=== PATIENT | male | born 1945 | race Caucasian/White ===

== ENCOUNTER → 2019-10-17 | Outpatient (CLI) | payer OTHER | LOC: SJCVCIMAG 08:11 | DX: I25.10 Atherosclerotic heart disease of native coronary artery without angina pectoris (principal); I10 Essential (primary) hypertension; I65.23 Occlusion and stenosis of bilateral carotid arteries; M10.9 Gout, unspecified; Z79.82 Long term (current) use of aspirin ==

== ENCOUNTER 2021-05-28 12:34 | Inpatient (IN) | payer OTHER ==
[~2021-05-28] VITALS: Ht 172.7 cm; Wt 92.1 kg
[2021-05-28 12:35] VITALS: BP 128/92
--- NOTE | 2021-05-28 12:57 | EKG ---
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1945 Requested By: Junaid Gong Order Number: [id number] MD: Dallas Dubois Measurements Intervals [place] Rate: 141 P: [place]: QRS: 75 QRSD: 88 T: 260 QT: 318 QTc: 487 Interpretive Statements Atrial fibrillation Nonspecific T abnormalities, lateral leads Compared to ECG 05/20/2007 04:55:33 T-wave abnormality now present Sinus rhythm no longer present Sinus arrhythmia no longer present Atrial abnormality no longer present Electronically Signed On 05-28-2021 12:56:44 CDT by Dallas Dubois [email or web address] <ELECTRONICALLY SIGNED> By: Dallas Dubois MD, [facility] 05/28/21 1256 1241 1241 Dallas Dubois MD, FACC /EPI
[2021-05-28 13:06] LABS: ABSOLUTE NEUTROPHILS 4.7 thou/uL (1.4-8.2); BASOPHILS 0.7 % (0.0-2.0); EOSINOPHILS 2.1 % (0.0-3.0); HEMATOCRIT 41.9 % (42.0-52.0); HEMOGLOBIN 13.9 gm/dL (14.0-18.0); LYMPHOCYTES 17.3 % (24.0-44.0); MCH 30.9 pg (26.0-34.0); MCHC 33.2 g/dL (28.0-37.0); MONOCYTES 13.9 % (1.0-8.0); PLATELET COUNT 171 thou/uL (150-400); RDW 14.1 % (10.5-14.5); WBC 7.1 thou/uL (4.0-11.0)
[2021-05-28 13:19] LABS: CALCIUM 9.3 mg/dL (8.5-10.1); CREATININE 1.5 mg/dL (0.7-1.3); POTASSIUM 4.7 mmol/L (3.5-5.1)
--- NOTE | 2021-05-28 23:00 | NUR ---
PT ADMIT FOR AFIB. PT IS ALERT AND OREINTED X4. LUNGS ARE CLEAR ON ROOM AIR. PT PLEASANT. NPO FOR CARDOVERSION IN AM. ADMIT TO TO [address] [place] [address]. PLAN OF CARE DISCUSSED WITH PT. PT REPORTS HE NOTICED HIS HEART RATE JUMPING UP WITH HIS APPLE WATCH SO HE CAME TO HOSPITAL. JUST GOT BACK FROM [facility] AND HIKING HE REPORTS. ON CARDIZEM DRIP NOW. CALL LIGHT WITHIN REACH IF NEEDS ASSISTANCE PER NURSING.
[2021-05-28] MEDS ORDERED: ALLOPURINOL 10100 M3 PO (23:03)
[2021-05-28] MEDS ORDERED: ROSUVASTATIN CA40 MG PO (23:04)
[2021-05-28] MEDS ORDERED: ACCUPRIL40 MG PO (23:04)
[2021-05-28] MEDS ORDERED: TRIAMTERENE/HCT1 CA1 PO (23:05)
[2021-05-28] MEDS ORDERED: PRILOSEC OTC20 MG PO (23:06)
[2021-05-28] MEDS ORDERED: MULTIVITAMIN1 EACH PO (23:07)
[2021-05-28] MEDS ORDERED: BYSTOLIC10 MG PO (23:07)
[2021-05-28] MEDS ORDERED: ASPIR-TRIN325 MG PO (23:08)
[2021-05-28] MEDS ORDERED: MAGNESIUM MALATE1 GM PO (23:09)
[2021-05-28] MEDS ORDERED: TURMERIC500 M2 PO (23:10)
[2021-05-28] MEDS ORDERED: VITAMIN D3 PO (23:12)
[2021-05-28] MEDS ORDERED: CO Q-1010 MG PO (23:13)
[2021-05-28] MEDS ORDERED: CINNAMON500 MG PO (23:13)
[2021-05-28] MEDS ORDERED: MILK THISTLE175 M1 PO (23:14)
[2021-05-28] MEDS ORDERED: PROBIOTIC1 EAC7 PO (23:14)
[2021-05-28 23:29] VITALS: BP 122/72
[2021-05-29 01:35] VITALS: BP 129/97
--- NOTE | 2021-05-29 02:19 | NUR ---
ADMISSION PROCESS STARTED IN ED, BELONGINGS LOGGED, MEDICATIONS RECONCILED, MEDICATIONS TO BE TAKEN HOME BY PT TOMORROW, CONSENTS TO BE OBTAINED WHEN PT TRANSFERRED TO UNIT. PT AOX4. PT DENIES PAIN. PT REPORTS SOB WITH EXERTION WHILE ON ROOM AIR, DESATURATIONS NOTED DOWN TO 88%. 2L O2 APPLIED VIA NC, O2 SATURATION NOTED TO IMPROVE TO 96%. PT TOLERATING PO INTAKE OF FLUIDS WITHOUT ISSUE. PT WITHOUT NAUSEA OR EMESIS. PT VOIDING PER URINAL, AMBULATES WITH STANBY ASSIST, GAIT STEADY. SENSATION INTACT, CAPILLARY REFILL LESS THAN 3SEC, PERIPHERAL PULSES PALPABLE IN ALL EXTREMITIES. PT TRANSFERRED TO 2N ROOM 20O. ENCOURAGED TO NOTIFY STAFF FOR ALL NEEDS, CALL LIGHT WITHIN REACH, BED ALARM ON, BED LOCKED IN LOWEST POSITION, FREQUENT MONITORING WILL CONTINUE. REPORT GIVEN TO BROOK SAMUELS.
--- NOTE | 2021-05-29 03:30 | NUR ---
NEEDING TO MOVE PT TO A DIFFERENT ROOM A PT NEEDING THAT NEGATIVE PRESSURE ROOM PT THREATINGING TO LEAVE AMA CAUSE HE HASNT SLEPT. PT IS NOT HAPPY AT THIS TIME. EXPLAIN PLAN OF CARE IS TO MOVE HIM SOON POSSIBLE AND SORRY FOR THE NO SLEEP.
[2021-05-29 03:48] VITALS: BP 146/94
[2021-05-29 06:17] LABS: HEMATOCRIT 39.5 % (42.0-52.0); HEMOGLOBIN 13.2 gm/dL (14.0-18.0); MCH 31.2 pg (26.0-34.0); MCHC 33.5 g/dL (28.0-37.0); MCV 93.1 fL (80.0-100.0); RBC 4.24 mil/uL (4.50-6.00); WBC 7.7 thou/uL (4.0-11.0)
[2021-05-29 06:35] LABS: CALCIUM 8.7 mg/dL (8.5-10.1); CREATININE 1.6 mg/dL (0.7-1.3); POTASSIUM 4.9 mmol/L (3.5-5.1)
--- NOTE | 2021-05-29 08:52 | TEE ---
[facility] [address] [place] [place] [address] TRANSESOPHAGEAL ECHOCARDIOGRAM Name: JORDAN GLYNN Room #: 206-P ADM IN M.R.#: [id number] Admission: 05/28/21 Attend Phys: Raj Barnes MD Discharge: Date of : 49 Report #: [id number] THIS REPORT FOR: cc: Surya Tripp MD, Christopher B. MD Santiago, Patrick MD FACC ~ APPROVED REPORT Study performed: 05/29/2021 08:08:57 EXAM: Transesophageal Echocardiogram Patient Location: In-Patient/Holding Status: routine BSA: 2.06 HR: 103 bpm BP: 118/79 mmHg Rhythm: Atrial Fibrillation Other Information Study Quality: Good Indications Atrial Fibrillation Cardioversion. Hx: CABG, PVD, HTN, HLP. Procedure After obtaining informed consent, patient underwent transesophageal echo in the [employer]. Type of Sedation : Conscious Sedation Sedation was administered by BROOK Gamboa. Sedation start time: 814 Case end Time: 822 Sedation was achieved intravenously with: Versed (5) Fentanyl (75) Transesophageal probe was inserted and advanced into esophagus without difficulty by Dallas Dubois MD FACC. Echo enhancement indication: R/O Septal defect. Echo enhancement agent administered: Agitated Saline The SUSAN was performed without complications. Synchronized Cardioversion attempted: Successful Synchronized Cardioversion acheived with 120J, 150J, 150 Joules after 3 attempt(s). Rhythm following Synchronized Cardioversion: Normal Sinus Rhythm Throughout the procedure, the blood pressure, pulse oximetry, cardiac [facility] [address] [place] [address] TRANSESOPHAGEAL ECHOCARDIOGRAM Name: JORDAN GLYNN Room #: 206-P [facility] IN .R.#: [id number] Admission: 05/28/21 Attend Phys: Rja Barnes MD Discharge: Date of : 49 Report #: [id number] rhythm, and rate were monitored. The patient tolerated the procedure without adverse effects. Recovery from conscious sedation was uneventful and vital signs were stable. Left Ventricle The left ventricle is normal size. There is normal LV segmental wall motion. Mild basal septal hypertrophy is present. Left ventricular systolic function is normal. LVEF is 55%. Right Ventricle The right ventricle is normal size. The right ventricular systolic function is normal. Atria Left atrium is mildly dilated. The right atrium size is normal. No thrombus is visualized in the left atrium or appendage. No shunting noted with contrast bubble injection. Aortic Valve Aortic valve is trileaflet, mildly sclerotic. No aortic regurgitation is present. There is no aortic valvular stenosis. Mitral Valve The mitral valve is normal in structure. Moderate mitral regurgitation. No evidence of mitral valve stenosis. Tricuspid Valve The tricuspid valve is normal in structure. Moderate tricuspid regurgitation. Pulmonic Valve The pulmonary valve is normal in structure. Great Vessels The aortic root is normal in size. The ascending aorta is normal in size. Pericardium There is no pericardial effusion. <Conclusion> Timeout was performed Consent was obtained After appropriate sedation esophageal probe was advanced without difficulty [facility] [place] [place] [address] TRANSESOPHAGEAL ECHOCARDIOGRAM Name: GRETTAJORDAN Room #: 206-P [facility] IN .R.#: [id number] Admission: 05/28/21 Attend Phys: Raj Barnes MD Discharge: Date of : 49 Report #: [id number] Normal left ventricle size/wall thickness Ejection fraction 60% Mild biatrial enlargement Moderate size left atrial appendage, no obvious mass or clot detected Moderate/central mitral valve insufficiency Mild to moderate tricuspid valve insufficiency No evidence of ASD/VSD by color flow/bubble study None minimal calcification in the aorta Patient was a successfully cardioverted to sinus rhythm after 120/150/1 50 J in a biphasic mode Patient tolerated procedure well Twelve-lead ECG pending <ELECTRONICALLY SIGNED> By: Dallas Dubois MD, FACC 05/29/2152 1 1 Dallas Dubois MD, FACC /INF
[2021-05-29 09:00] VITALS: BP 133/79
[2021-05-29] MEDS ORDERED: XARELTO20 MG PO (11:11)
[2021-05-29] MEDS ORDERED: MULTAQ 400 MG400 MG PO (11:39)
[2021-05-29 12:07] VITALS: BP 136/76
[2021-05-29] MEDS ORDERED: ELIQUIS5 MG PO (12:30)
--- NOTE | 2021-05-29 13:19 | EKG ---
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1945 Requested By: Raj Barnes Order Number: [id number] : Dallas Dubois Measurements Intervals [place] Rate: 82 P: 72 [place]: 175 QRS: 74 QRSD: 90 T: 27 QT: 394 QTc: 461 Interpretive Statements Sinus rhythm Ventricular premature complex Left atrial enlargement Compared to ECG 05/28/2021 12:41:43 Ventricular premature complex(es) now present Atrial abnormality now present Atrial fibrillation no longer present T-wave abnormality no longer present Electronically Signed On 05-29-2021 13:19:31 CDT by Dallas Dubois [email or web address] <ELECTRONICALLY SIGNED> By: Dallas Dubois MD, FACC 05/29/21 1319 0836 Dallas Dubois MD, FAC /EPI
[2021-05-29 14:13] VITALS: BP 136/76
--- NOTE | 2021-05-29 14:47 | NUR ---
PT IS ALERT AND ORIENTED X4. PT IS RA AND SR WITH PACS ON THE MONITOR AFTER CARDIOVERSION THIS AM. REVIEWED DISCHARGE INSTRUCTIONS WITH PT. PT VERBALIZED UNDERSTANDING. PT AMBULATED TO EXIT WITH STAFF WITH DRIVING. PT TOOK ALL BELONGINGS.
== END 2021-05-29 14:57 | disposition home or self-care (01) | DRG 308 ==
LOC: ER 12:34 → 2N 16:22 → EROBS 16:22 → 2N 23:29
PROVIDERS: Nurse Practitioner; ADMIT Hospitalist; ATTEND Hospitalist
PROC: B24BZZ4 Ultrasonography of Heart with Aorta, Transesophageal (ICD-10-PCS; principal; 2021-05-29)
PROC: 5A2204Z Restoration of Cardiac Rhythm, Single (ICD-10-PCS; principal; 2021-05-29)
DX: I48.91 Unspecified atrial fibrillation (principal); I50.31 Acute diastolic (congestive) heart failure; I13.0 Hypertensive heart and chronic kidney disease with heart failure and stage 1 through stage 4 chronic kidney disease, or unspecified chronic kidney disease; Z20.822 Contact with and (suspected) exposure to COVID-19; I25.10 Atherosclerotic heart disease of native coronary artery without angina pectoris; E78.5 Hyperlipidemia, unspecified; N18.9 Chronic kidney disease, unspecified; Z79.899 Other long term (current) drug therapy; Z79.01 Long term (current) use of anticoagulants; Z95.1 Presence of aortocoronary bypass graft; Z90.49 Acquired absence of other specified parts of digestive tract; Z88.8 Allergy status to other drugs, medicaments and biological substances; Z23 Encounter for immunization
CPT/HCPCS: 10081

== ENCOUNTER → 2021-06-10 | Outpatient (CLI) | payer OTHER ==
[~2021-06-10] MED LIST: ACCUPRIL40 MG PO; ALLOPURINOL 10100 M3 PO; ASPIR-TRIN325 MG PO; BYSTOLIC10 MG PO; CINNAMON500 MG PO; CO Q-1010 MG PO; ELIQUIS5 MG PO; MAGNESIUM MALATE1 GM PO; MILK THISTLE175 M1 PO; MULTAQ 400 MG400 MG PO; MULTIVITAMIN1 EACH PO; PRILOSEC OTC20 MG PO; PROBIOTIC1 EAC7 PO; ROSUVASTATIN CA40 MG PO; TRIAMTERENE/HCT1 CA1 PO; TURMERIC500 M2 PO; VITAMIN D3 PO; XARELTO20 MG PO
== END ==
LOC: SJCVC 15:34
PROVIDERS: ATTEND Internal Medicine
DX: R94.31 Abnormal electrocardiogram [ECG] [EKG] (principal); R00.1 Bradycardia, unspecified; I25.10 Atherosclerotic heart disease of native coronary artery without angina pectoris; I48.0 Paroxysmal atrial fibrillation; I13.0 Hypertensive heart and chronic kidney disease with heart failure and stage 1 through stage 4 chronic kidney disease, or unspecified chronic kidney disease; I50.32 Chronic diastolic (congestive) heart failure; N18.32 Chronic kidney disease, stage 3b; E78.5 Hyperlipidemia, unspecified; K21.9 Gastro-esophageal reflux disease without esophagitis; I65.29 Occlusion and stenosis of unspecified carotid artery; Z95.1 Presence of aortocoronary bypass graft; Z82.49 Family history of ischemic heart disease and other diseases of the circulatory system; Z79.899 Other long term (current) drug therapy; Z88.8 Allergy status to other drugs, medicaments and biological substances; Z72.89 Other problems related to lifestyle

== ENCOUNTER → 2021-07-03 | Outpatient (CLI) | payer OTHER | LOC: SJCVCIMAG 07:12 | PROVIDERS: ATTEND Internal Medicine | DX: I13.0 Hypertensive heart and chronic kidney disease with heart failure and stage 1 through stage 4 chronic kidney disease, or unspecified chronic kidney disease (principal); I50.32 Chronic diastolic (congestive) heart failure; N18.31 Chronic kidney disease, stage 3a; I25.10 Atherosclerotic heart disease of native coronary artery without angina pectoris; I48.0 Paroxysmal atrial fibrillation; E78.5 Hyperlipidemia, unspecified; K21.9 Gastro-esophageal reflux disease without esophagitis; Z95.1 Presence of aortocoronary bypass graft; Z88.8 Allergy status to other drugs, medicaments and biological substances; Z72.89 Other problems related to lifestyle; Z79.899 Other long term (current) drug therapy ==